=== PATIENT | male | born 1940 | race Caucasian/White ===

== ENCOUNTER → 2017-07-13 | Outpatient (CLI) | payer BC ==
[~2017-07-13] MED LIST: ALLEGRA ALLERG180 MG PO; ASPIR 8181 MG PO; AZITHROMYCIN 2250 MG PO; CARDIZEM CD 18180 M3 PO; CARVEDILOL12.5 MG; CEFDINIR300 MG PO; CIMETIDINE 400400 MG PO; COUMADIN 5 MG TA5 M1; COZAAR100 MG PO; DOXYCYCLINE 10100 MG PO; ELIQUIS5 MG PO; FLONASE 0.05%50 MCG; HYDROCODON-ACE1 EAC8 PO; LANOXIN 0.120.125 M1 PO; MEDROL DOSPAK21 TA1 PO; MOBIC15 MG PO; MUCINEX600 MG PO; NORCO 5-325 TA1 EACH PO; PROBENECID500 MG PO; SKELAXIN 800 M800 M1 PO; VENTOLIN HFA 1818 GM INH; VITAMIN D3400 UNIT PO; ZOFRAN ODT4 MG PO; ZOFRAN4 MG PO
[2017-07-13 07:27] LABS: CREATININE 1.7 mg/dL (0.6-1.3); POTASSIUM 4.3 mmol/L (3.5-5.1)
[2017-07-13 07:32] LABS: ALBUMIN 3.6 g/dL (3.4-5.0); TOTAL BILIRUBIN 0.4 mg/dL (<0.1-1.0); TOTAL PROTEIN 7.3 g/dL (6.4-8.2)
== END ==
LOC: M.LAB 07:01 → M.CT 08:30
PROVIDERS: Family Medicine
DX: I70.213 Atherosclerosis of native arteries of extremities with intermittent claudication, bilateral legs (principal); I77.1 Stricture of artery

== ENCOUNTER → 2017-07-16 | Outpatient (CLI) | payer BC ==
--- NOTE | 2017-07-16 08:15 | NUR ---
PT ARRIVED AMBULATORY. MADE SELF COMFORTABLE IN RECLINER. 20 GAUGE IV STARTED IN LEFT ANTECUBITAL FOR HYDRATION PROTOCOL FOR CONTRAST ADMINISTRATION. CMP OBTAINED AND SENT TO LAB. PT'S EGFR AT 42 AND CR 1.6, SO PT MEETS HIGH RISK FOR HYDRATION PROTOCOL. PT'S IVF RAN AT 252 ML/HOUR FOR 1 HOUR (3ML/84KG/HR) FOR [address] PT THEN LEFT FOR CT ANGIOGRAM ABD/PELVIS VIA W/CHAIR. AFTER PT RETURNED, PT'S IVF (NORMAL SALINE) RAN AT 85 ML/HOUR X 4 HOURS (1ML/84KG/HR). 20 GAUGE DC'D PRIOR TO PT LEAVING INFUSION. DENIES NEEDS OR QUESTIONS AT DISCHARGE.
[2017-07-16 08:19] VITALS: BP 135/66
[2017-07-16 09:52] LABS: CALCIUM 9.1 mg/dL (8.5-10.1); CREATININE 1.6 mg/dL (0.6-1.3); POTASSIUM 4.2 mmol/L (3.5-5.1)
[2017-07-16 09:57] LABS: ALBUMIN 3.5 g/dL (3.4-5.0); TOTAL BILIRUBIN 0.5 mg/dL (<0.1-1.0)
== END ==
LOC: M.LAB 08:01 → M.INFUS 08:30 → M.CT 09:30
PROVIDERS: Family Medicine
DX: I70.213 Atherosclerosis of native arteries of extremities with intermittent claudication, bilateral legs (principal); N18.3 Chronic kidney disease, stage 3 (moderate); I77.1 Stricture of artery; N28.1 Cyst of kidney, acquired

== ENCOUNTER → 2017-10-04 | Outpatient (CLI) | payer BC | LOC: M.MRI 07:58 | DX: M47.816 Spondylosis without myelopathy or radiculopathy, lumbar region (principal); G89.29 Other chronic pain; R53.83 Other fatigue ==

== ENCOUNTER 2019-04-30 00:14 | Emergency (ER) | payer BC ==
[~2019-04-30] VITALS: Ht 170.2 cm; Wt 91.6 kg
[2019-04-30] MEDS ORDERED: COZAAR 25 MG TA25 M1 PO (00:30)
[2019-04-30 01:01] LABS: ABSOLUTE BASOPHILS 0.1 thou/uL (0.0-0.2); ABSOLUTE LYMPHOCYTES 1.3 thou/uL (0.8-5.3); ABSOLUTE MONOCYTES 0.7 thou/uL (0.0-1.2); ABSOLUTE NEUTROPHILS 8.8 thou/uL (1.6-8.1); BASOPHILS 0.5 %; EOSINOPHILS 0.3 %; HEMATOCRIT 47.3 % (42.0-52.0); LYMPHOCYTES 11.8 %; MCH 32.2 pg (26.0-34.0); MCHC 33.7 g/dL (28.0-37.0); MCV 95.4 fL (80.0-100.0); MONOCYTES 6.5 %; MPV 7.1 fl. (7.2-11.1); NUCLEATED RBCS 0 /100WBC; PLATELET COUNT* 287 thou/uL (150-400); POLYS 80.9 %; RBC 4.97 mil/uL (4.50-6.00); RDW-CV 13.5 % (10.5-14.5); WBC 10.9 thou/uL (4.0-11.0)
[2019-04-30 01:06] LABS: CALCIUM 8.4 mg/dL (8.5-10.1); CREATININE 2.2 mg/dL (0.6-1.3); POTASSIUM 3.9 mmol/L (3.5-5.1)
[2019-04-30 01:20] LABS: ALBUMIN 3.7 g/dL (3.4-5.0); TOTAL BILIRUBIN 0.4 mg/dL (<0.1-1.0); TOTAL PROTEIN 7.2 g/dL (6.4-8.2)
[2019-04-30 02:13] LABS: URINE BILIRUBIN NEGATIVE (Negative); URINE BLOOD TRACE (Negative); URINE CLARITY CLEAR; URINE COLOR STRAW; URINE GLUCOSE-RANDOM 1+ (Negative); URINE KETONES TRACE (Negative); URINE LEUKOCYTES-REFLEX NEGATIVE (Negative); URINE NITRITE-REFLEX NEGATIVE (Negative); URINE PROTEIN NEGATIVE (Negative); URINE UROBILINOGEN 0.2 E.U./dl (0.2-1.0)
[2019-04-30] MEDS ORDERED: HYDROCODON-ACE1 EAC7 PO (05:21)
[2019-04-30 05:31] VITALS: BP 185/94
--- NOTE | 2019-05-01 11:47 | EKG ---
[place] [address] ELECTROCARDIOGRAM REPORT Name: NARESH MALDONADO Room: [facility]#: [id number] Admission: 04/30/19 Attend Phys: Discharge: 04/30/19 Date of : 38 Date of Service: 04/30/19 0028 Report #: [id number] THIS REPORT FOR: //name// [facility] ED Test Date: 2019-04-30 Test Time: 00:28:45 Pat Name: NARESH MALDONADO Department: Room: Gender: [employer]: : 1940 Requested By: Sherrie Askew Order Number: [id number] Lilia MD: Hola Wooten Measurements Intervals [place] Rate: 90 P: [place]: QRS: 93 QRSD: 151 T: 6 QT: 404 QTc: 495 Interpretive Statements Atrial fibrillation Right bundle branch block Compared to ECG 02/09/2017 06:25:17 no change Electronically Signed On 05-01-2019 11:46:28 CDT by Hola Wooten [email or web address] <ELECTRONICALLY SIGNED> By: Hola Wooten MD, [facility] 05/01/19 1146 0028 002 Hola Wooten MD, FACC /EPI
== END 2019-04-30 05:31 | disposition home or self-care (01) ==
LOC: M.ERS 00:14
PROVIDERS: Personal Emergency Response Attendant
DX: R10.84 Generalized abdominal pain (principal); R11.2 Nausea with vomiting, unspecified; I10 Essential (primary) hypertension; I48.91 Unspecified atrial fibrillation; Z90.89 Acquired absence of other organs; Z88.0 Allergy status to penicillin; Z79.82 Long term (current) use of aspirin